=== PATIENT | male | born 1955 | race African-American/Black ===

== ENCOUNTER 2020-05-26 18:29 | Inpatient (IN) ==
[2020-05-26] MEDS ORDERED: LORazepam 2 MG/1 ML VIAL IV STA ×2 (19:04→20:15)
[2020-05-26] MEDS ORDERED: THIAMINE INJ 100 MG, FOLIC ACID INJ 1 MG, MAGNESIUM SULF INJ 2 GM, MULTIVITAMIN INJ 10 ... IV ONE (19:04)
[2020-05-26 19:46] LABS: Basophils % 0.2 % (0.0-0.8); Eosinophils % 0.1 % (0.00-10.9); Hematocrit 41.8 VOL% (42.0-52.0); Hemoglobin 13.5 GM/DL (14.0-18.0); Immature Granulocytes % 1.3 %; Immature Granulocytes Absolute 0.18 #; Lymphocytes # 1.7 10*3/uL (1.4-4.0); Mean Corpuscular HGB Conc 32.3 GM/DL (32-36); Mean Corpuscular Volume 100.2 FL (87-102); Mean Platelet Volume 10.1 FL (9.6-12.0); Monocytes % 12.7 % (1.7-12.7); NRBC # 0.03 10*3/uL; Neutrophils % 73.7 % (38.7-73.9); Platelet Count 382 T/CUMM (130-400); Red Blood Count 4.17 MC/CUMM (3.8-5.5); Red Cell Distribution Width 13.9 % (9.3-17.3)
[2020-05-26 19:58] LABS: INR 1.1; PT Patient Result 11.5 SECS (9.8-11.9)
[2020-05-26 20:20] LABS: Alanine Aminotransferase 11 U/L (16-61); Albumin 2.9 G/DL (3.4-5.0); Alkaline Phosphatase 164 U/L (45-117); Aspartate Amino Transferase 57 U/L (0-37); Bilirubin,Total 0.77 MG/DL (0.2-1.0); Blood Urea Nitrogen 32 MG/DL (7-18); Calcium 8.8 MG/DL (8.5-10.1); Estimated Glom Filtration Rate 44 ML/MIN; Glucose 160 MG/DL (74-106); Total Protein 8.7 G/DL (6.4-8.3)
[2020-05-26 20:21] LABS: CKMB % 0.6 %; Carbon Dioxide 30 MMOL/L (21-32); Osmolality,Calculated 286.5 MOS/KG (273-304); Potassium 2.7 MMOL/L (3.5-5.1); Sodium 139 MMOL/L (136-145)
[2020-05-26 20:22] LABS: Troponin I 0.066 NG/ML (0.00-0.045)
[2020-05-26] MEDS ORDERED: POTASSIUM CHLORIDE RIDER 20 MEQ in PREMIX 1 EACH IV STA (20:47)
[2020-05-26 21:19] LABS: Bacteria,Urine Occasional /HPF (Few); Bilirubin,Urine Small mg/dL (Negative); Blood, Urine Moderate mg/dL (Negative); Glucose,Urine (UA) Negative (Negative); Hyaline Casts,Urine 108 /LPF (0-3); Ketones,Urine Negative (Negative); Mucus,Urine Few /LPF (Occasional); Nitrite,Urine Negative (Negative); Protein,Urine 30 MG/DL; RBC,Urine 4 /HPF (0-4); Squamous Epithelial Cell,Urine Occasional /HPF (0-10); Urine Appearance Slightly Hazy (Clear); Urine Color Amber (Yellow); Urine Specific Gravity 1.023 (1.001-1.035); WBC,Urine 2 /HPF (0-6)
[2020-05-26 21:21] LABS: Barbiturates Screen,Urine Negative (Negative); Benzodiazepines Screen,Urine Negative (Negative); Cannabinoid Screen,Urine Negative (Negative); Opiate Screen,Urine Negative (Negative); Phencyclidine Screen,Urine Negative (Negative)
[2020-05-26] MEDS ORDERED: GLUCAGON 1 MG VIAL IM PRN (21:57)
[2020-05-26] MEDS ORDERED: DEXTROSE 50% 25 GM/50 ML VIAL IV PRN ×2 (21:57→22:05)
[2020-05-26] MEDS ORDERED: METHOCARBAMOL 750 MG TABLET PO PRN (22:05)
[2020-05-26] MEDS ORDERED: THIAMINE INJ 100 MG, FOLIC ACID INJ 1 MG, MULTIVITAMIN INJ 10 ML in SODIUM CHLORIDE 0.9... IV ONE (22:05)
[2020-05-26] MEDS ORDERED: HydrOXYzine PAMOATE 25 MG CAPSULE PO PRN (22:05)
[2020-05-26] MEDS ORDERED: POTASSIUM CHLORIDE 20 MEQ TABLET PO PRN (22:05)
[2020-05-26] MEDS ORDERED: DICYCLOMINE 10 MG CAPSULE PO PRN (22:05)
[2020-05-27] MEDS: SODIUM CHLORIDE 0.9% 1,000 ML IV SCH ×3 (00:16→17:11)
[2020-05-27] MEDS: ENOXAPARIN 40 MG/0.4 ML SYRINGE SUBCUT SCH ×2 (00:20→21:57)
[2020-05-27] MEDS: chlordiazePOXIDE 25 MG CAPSULE PO SCH ×4 (01:57→21:57)
[2020-05-27 07:29] LABS: Basophils % 0.2 % (0.0-0.8); Eosinophils % 0.1 % (0.00-10.9); Hematocrit 32.6 VOL% (42.0-52.0); Immature Granulocytes % 0.7 %; Immature Granulocytes Absolute 0.08 #; Lymphocytes # 1.7 10*3/uL (1.4-4.0); Lymphocytes % 15.3 % (21.2-54.2); Mean Corpuscular HGB Conc 33.7 GM/DL (32-36); Mean Corpuscular Volume 97.6 FL (87-102); Mean Platelet Volume 10.2 FL (9.6-12.0); Monocytes % 13.3 % (1.7-12.7); Neutrophils % 70.4 % (38.7-73.9); Platelet Count 280 T/CUMM (130-400); Red Blood Count 3.34 MC/CUMM (3.8-5.5); White Blood Count 11.2 T/CUMM (4-12)
[2020-05-27 07:52] LABS: Alanine Aminotransferase < 9 U/L (16-61); Albumin 2.3 G/DL (3.4-5.0); Alkaline Phosphatase 123 U/L (45-117); Aspartate Amino Transferase 46 U/L (0-37); Blood Urea Nitrogen 26 MG/DL (7-18); Calcium 7.9 MG/DL (8.5-10.1); Carbon Dioxide 30 MMOL/L (21-32); Estimated Glom Filtration Rate 71 ML/MIN; Glucose 88 MG/DL (74-106); Sodium 143 MMOL/L (136-145); Total Protein 6.7 G/DL (6.4-8.3)
[2020-05-27 07:57] LABS: Potassium 2.2 MMOL/L (3.5-5.1)
[2020-05-27] MEDS: INSULIN REGULAR 100 UNIT/ML SUBCUT SCH ×4 (08:20→21:57)
[2020-05-27] MEDS: FOLIC ACID 1 MG TABLET PO SCH (08:54)
[2020-05-27] MEDS: THIAMINE 100 MG TABLET PO SCH (08:54)
[2020-05-27] MEDS ORDERED: POTASSIUM CHLORIDE 20 MEQ TABLET PO ONE (09:00)
[2020-05-27] MEDS ORDERED: POTASSIUM CHLORIDE INJ 50 MEQ in SODIUM CHLORIDE 0.9% 500 ML IV ONE (10:00)
[2020-05-27] MEDS ORDERED: THIAMINE INJ 100 MG, FOLIC ACID INJ 1 MG, MULTIVITAMIN INJ 10 ML in SODIUM CHLORIDE 0.9... IV ONE (21:00)
[2020-05-28] MEDS: SODIUM CHLORIDE 0.9% 1,000 ML IV SCH ×3 (01:10→19:06)
[2020-05-28] MEDS: chlordiazePOXIDE 25 MG CAPSULE PO SCH ×3 (02:23→17:31)
[2020-05-28 05:54] LABS: Basophils % 0.1 % (0.0-0.8); Eosinophils # 0.1 10*3/uL (0.0-0.87); Eosinophils % 0.7 % (0.00-10.9); Hematocrit 28.9 VOL% (42.0-52.0); Hemoglobin 9.3 GM/DL (14.0-18.0); Immature Granulocytes % 0.7 %; Immature Granulocytes Absolute 0.05 #; Lymphocytes # 1.3 10*3/uL (1.4-4.0); Lymphocytes % 18.2 % (21.2-54.2); Mean Corpuscular HGB Conc 32.2 GM/DL (32-36); Mean Corpuscular Volume 101.4 FL (87-102); Mean Platelet Volume 10.1 FL (9.6-12.0); Neutrophils % 67.3 % (38.7-73.9); Platelet Count 234 T/CUMM (130-400); Red Blood Count 2.85 MC/CUMM (3.8-5.5); Red Cell Distribution Width 13.8 % (9.3-17.3); White Blood Count 7.4 T/CUMM (4-12)
[2020-05-28 06:37] LABS: Alanine Aminotransferase < 9 U/L (16-61); Albumin 1.8 G/DL (3.4-5.0); Alkaline Phosphatase 105 U/L (45-117); Aspartate Amino Transferase 35 U/L (0-37); Blood Urea Nitrogen 17 MG/DL (7-18); Calcium 7.6 MG/DL (8.5-10.1); Carbon Dioxide 26 MMOL/L (21-32); Estimated Glom Filtration Rate 95 ML/MIN; Glucose 78 MG/DL (74-106); Osmolality,Calculated 290.6 MOS/KG (273-304); Potassium 2.8 MMOL/L (3.5-5.1); Sodium 146 MMOL/L (136-145); Total Protein 5.7 G/DL (6.4-8.3)
[2020-05-28 08:02] LABS: Troponin I 0.033 NG/ML (0.00-0.045)
[2020-05-28] MEDS ORDERED: POTASSIUM CHLORIDE 20 MEQ TABLET PO PRN (08:22)
[2020-05-28] MEDS: FOLIC ACID 1 MG TABLET PO SCH (08:59)
[2020-05-28] MEDS: THIAMINE 100 MG TABLET PO SCH (08:59)
[2020-05-28] MEDS: INSULIN REGULAR 100 UNIT/ML SUBCUT SCH ×4 (09:23→22:00)
[2020-05-28] MEDS ORDERED: MAGNESIUM SULF RIDER 4 GM in PREMIX 1 EACH IV ONE (12:00)
[2020-05-28] MEDS ORDERED: POTASSIUM CHLORIDE 20 MEQ TABLET PO ONE (12:00)
[2020-05-28] MEDS: ASPIRIN EC 81 MG TABLET PO SCH (12:58)
[2020-05-28] MEDS: METOPROLOL TARTRATE 25 MG TABLET PO SCH ×2 (12:59→21:59)
[2020-05-28] MEDS: ENOXAPARIN 40 MG/0.4 ML SYRINGE SUBCUT SCH (21:59)
[2020-05-29] MEDS: chlordiazePOXIDE 25 MG CAPSULE PO SCH ×3 (04:14→17:41)
[2020-05-29] MEDS: SODIUM CHLORIDE 0.9% 1,000 ML IV SCH ×3 (07:09→18:22)
[2020-05-29] MEDS: INSULIN REGULAR 100 UNIT/ML SUBCUT SCH ×4 (07:56→21:25)
[2020-05-29 08:51] LABS: Basophils % 0.2 % (0.0-0.8); Eosinophils # 0.1 10*3/uL (0.0-0.87); Eosinophils % 0.9 % (0.00-10.9); Hematocrit 31.9 VOL% (42.0-52.0); Hemoglobin 10.1 GM/DL (14.0-18.0); Immature Granulocytes % 0.6 %; Immature Granulocytes Absolute 0.04 #; Lymphocytes # 1.6 10*3/uL (1.4-4.0); Lymphocytes % 24.3 % (21.2-54.2); Mean Corpuscular HGB Conc 31.7 GM/DL (32-36); Mean Corpuscular Volume 101.9 FL (87-102); Mean Platelet Volume 11.1 FL (9.6-12.0); Monocytes % 11.8 % (1.7-12.7); Neutrophils % 62.2 % (38.7-73.9); Platelet Count 205 T/CUMM (130-400); Red Blood Count 3.13 MC/CUMM (3.8-5.5); White Blood Count 6.5 T/CUMM (4-12)
[2020-05-29] MEDS: FOLIC ACID 1 MG TABLET PO SCH (09:05)
[2020-05-29] MEDS: ASPIRIN EC 81 MG TABLET PO SCH (09:05)
[2020-05-29] MEDS: METOPROLOL TARTRATE 25 MG TABLET PO SCH ×2 (09:05→21:25)
[2020-05-29] MEDS: THIAMINE 100 MG TABLET PO SCH (09:05)
[2020-05-29 09:24] LABS: Calcium 7.7 MG/DL (8.5-10.1); Osmolality,Calculated 275.5 MOS/KG (273-304); Potassium 3.7 MMOL/L (3.5-5.1)
[2020-05-29 09:29] LABS: Alanine Aminotransferase < 9 U/L (16-61); Albumin 1.8 G/DL (3.4-5.0); Alkaline Phosphatase 108 U/L (45-117); Aspartate Amino Transferase 32 U/L (0-37); Blood Urea Nitrogen 12 MG/DL (7-18); Calcium 7.7 MG/DL (8.5-10.1); Carbon Dioxide 26 MMOL/L (21-32); Estimated Glom Filtration Rate 95 ML/MIN; Glucose 77 MG/DL (74-106); Osmolality,Calculated 284.8 MOS/KG (273-304); Potassium 3.6 MMOL/L (3.5-5.1); Sodium 144 MMOL/L (136-145); Total Protein 5.7 G/DL (6.4-8.3)
[2020-05-29] MEDS: ENOXAPARIN 40 MG/0.4 ML SYRINGE SUBCUT SCH (21:28)
[2020-05-30 06:39] LABS: Calcium 7.8 MG/DL (8.5-10.1); Osmolality,Calculated 282.8 MOS/KG (273-304); Potassium 3.4 MMOL/L (3.5-5.1)
[2020-05-30] MEDS: INSULIN REGULAR 100 UNIT/ML SUBCUT SCH ×4 (07:23→20:15)
[2020-05-30] MEDS ORDERED: TUBERCULIN SKIN TEST 0.1 ML SYRINGE INTRADERM ONE (08:30)
[2020-05-30] MEDS: METOPROLOL TARTRATE 25 MG TABLET PO SCH ×2 (08:37→20:14)
[2020-05-30] MEDS: ASPIRIN EC 81 MG TABLET PO SCH (08:37)
[2020-05-30] MEDS: FOLIC ACID 1 MG TABLET PO SCH (08:37)
[2020-05-30] MEDS: THIAMINE 100 MG TABLET PO SCH (08:38)
[2020-05-30] MEDS: SODIUM CHLORIDE 0.9% 1,000 ML IV SCH ×3 (11:32→18:35)
[2020-05-30] MEDS: ENOXAPARIN 40 MG/0.4 ML SYRINGE SUBCUT SCH (20:14)
[2020-05-31] MEDS: SODIUM CHLORIDE 0.9% 1,000 ML IV SCH ×3 (02:57→18:57)
[2020-05-31] MEDS: INSULIN REGULAR 100 UNIT/ML SUBCUT SCH ×4 (07:42→21:13)
[2020-05-31] MEDS: ASPIRIN EC 81 MG TABLET PO SCH (08:11)
[2020-05-31] MEDS: THIAMINE 100 MG TABLET PO SCH (08:11)
[2020-05-31] MEDS: METOPROLOL TARTRATE 25 MG TABLET PO SCH ×2 (08:12→20:11)
[2020-05-31] MEDS: FOLIC ACID 1 MG TABLET PO SCH (08:12)
[2020-05-31] MEDS: ENOXAPARIN 40 MG/0.4 ML SYRINGE SUBCUT SCH (20:11)
[2020-06-01] MEDS: SODIUM CHLORIDE 0.9% 1,000 ML IV SCH ×3 (03:00→19:31)
[2020-06-01] MEDS: INSULIN REGULAR 100 UNIT/ML SUBCUT SCH ×4 (07:50→22:55)
[2020-06-01] MEDS: ASPIRIN EC 81 MG TABLET PO SCH (08:54)
[2020-06-01] MEDS: THIAMINE 100 MG TABLET PO SCH (08:54)
[2020-06-01] MEDS: FOLIC ACID 1 MG TABLET PO SCH (08:54)
[2020-06-01] MEDS: METOPROLOL TARTRATE 25 MG TABLET PO SCH ×2 (08:54→20:40)
[2020-06-01] MEDS: amLODIPine 5 MG TABLET PO SCH (13:42)
[2020-06-01] MEDS: ENOXAPARIN 40 MG/0.4 ML SYRINGE SUBCUT SCH (20:40)
[2020-06-02] MEDS: SODIUM CHLORIDE 0.9% 1,000 ML IV SCH ×3 (03:05→22:00)
[2020-06-02 05:42] LABS: Basophils % 0.4 % (0.0-0.8); Eosinophils # 0.1 10*3/uL (0.0-0.87); Eosinophils % 1.1 % (0.00-10.9); Hematocrit 28.6 VOL% (42.0-52.0); Hemoglobin 9.2 GM/DL (14.0-18.0); Immature Granulocytes % 0.2 %; Immature Granulocytes Absolute 0.01 #; Lymphocytes # 1.6 10*3/uL (1.4-4.0); Lymphocytes % 34.3 % (21.2-54.2); Mean Corpuscular HGB Conc 32.2 GM/DL (32-36); Mean Corpuscular Volume 97.3 FL (87-102); Mean Platelet Volume 10.5 FL (9.6-12.0); Monocytes % 11.3 % (1.7-12.7); Neutrophils % 52.7 % (38.7-73.9); Platelet Count 244 T/CUMM (130-400); Red Blood Count 2.94 MC/CUMM (3.8-5.5); Red Cell Distribution Width 13.2 % (9.3-17.3); White Blood Count 4.7 T/CUMM (4-12)
[2020-06-02 05:53] LABS: Calcium 7.2 MG/DL (8.5-10.1); Osmolality,Calculated 272.5 MOS/KG (273-304)
[2020-06-02 06:15] LABS: Anisocytosis 1+; Eosinophils 1 % (0-10); Lymphocytes 26 % (20-55); Macrocytosis 1+; Platelet Estimate Normal; Segmented Neutrophils 66 % (50-85); Total Cells Counted 100
[2020-06-02 06:16] LABS: Atypical Lymphocytes Few
[2020-06-02] MEDS ORDERED: MAGNESIUM SULF RIDER 4 GM in PREMIX 1 EACH IV ONE (08:59)
[2020-06-02] MEDS ORDERED: POTASSIUM CHLORIDE 20 MEQ TABLET PO ONE (09:00)
[2020-06-02] MEDS ORDERED: amLODIPine 10 MG TABLET PO SCH (09:01)
[2020-06-02] MEDS: INSULIN REGULAR 100 UNIT/ML SUBCUT SCH ×4 (09:57→23:16)
[2020-06-02] MEDS: FOLIC ACID 1 MG TABLET PO SCH (09:59)
[2020-06-02] MEDS: MAGNESIUM OXIDE 400 MG TABLET PO SCH ×2 (09:59→23:01)
[2020-06-02] MEDS: amLODIPine 10 MG TABLET PO SCH (09:59)
[2020-06-02] MEDS: ASPIRIN EC 81 MG TABLET PO SCH (09:59)
[2020-06-02] MEDS: METOPROLOL TARTRATE 25 MG TABLET PO SCH ×2 (09:59→23:01)
[2020-06-02] MEDS: POLYETHYLENE GLYCOL POWDER 17 GM PACK PO SCH (10:00)
[2020-06-02] MEDS: THIAMINE 100 MG TABLET PO SCH (10:00)
[2020-06-02] MEDS: POTASSIUM CHLORIDE RIDER 10 MEQ in PREMIX 1 EACH IV SCH ×4 (11:37→15:07)
[2020-06-02] MEDS: amLODIPine 5 MG TABLET PO SCH (16:50)
[2020-06-02] MEDS: ENOXAPARIN 40 MG/0.4 ML SYRINGE SUBCUT SCH (23:01)
[2020-06-03 05:33] LABS: Basophils % 0.5 % (0.0-0.8); Eosinophils # 0.1 10*3/uL (0.0-0.87); Eosinophils % 0.9 % (0.00-10.9); Hematocrit 30.9 VOL% (42.0-52.0); Hemoglobin 10.1 GM/DL (14.0-18.0); Immature Granulocytes % 0.4 %; Immature Granulocytes Absolute 0.03 #; Lymphocytes # 1.9 10*3/uL (1.4-4.0); Lymphocytes % 25.2 % (21.2-54.2); Mean Corpuscular HGB Conc 32.7 GM/DL (32-36); Mean Corpuscular Volume 96.9 FL (87-102); Monocytes % 12.3 % (1.7-12.7); Neutrophils % 60.7 % (38.7-73.9); Platelet Count 232 T/CUMM (130-400); Red Blood Count 3.19 MC/CUMM (3.8-5.5); Red Cell Distribution Width 13.5 % (9.3-17.3); White Blood Count 7.5 T/CUMM (4-12)
[2020-06-03 05:51] LABS: Calcium 7.7 MG/DL (8.5-10.1); Osmolality,Calculated 275.3 MOS/KG (273-304); Potassium 4.4 MMOL/L (3.5-5.1)
[2020-06-03] MEDS: THIAMINE 100 MG TABLET PO SCH (08:40)
[2020-06-03] MEDS: FOLIC ACID 1 MG TABLET PO SCH (08:40)
[2020-06-03] MEDS: amLODIPine 10 MG TABLET PO SCH (08:40)
[2020-06-03] MEDS: ASPIRIN EC 81 MG TABLET PO SCH (08:40)
[2020-06-03] MEDS: MAGNESIUM OXIDE 400 MG TABLET PO SCH ×2 (08:40→23:41)
[2020-06-03] MEDS: METOPROLOL TARTRATE 25 MG TABLET PO SCH ×2 (08:40→23:42)
[2020-06-03] MEDS: POLYETHYLENE GLYCOL POWDER 17 GM PACK PO SCH (08:40)
[2020-06-03] MEDS: SODIUM CHLORIDE 0.9% 1,000 ML IV SCH ×3 (08:41→18:10)
[2020-06-03] MEDS: INSULIN REGULAR 100 UNIT/ML SUBCUT SCH ×4 (08:41→23:42)
[2020-06-03] MEDS: ENOXAPARIN 40 MG/0.4 ML SYRINGE SUBCUT SCH (23:41)
[2020-06-04] MEDS: SODIUM CHLORIDE 0.9% 1,000 ML IV SCH ×4 (01:30→18:52)
[2020-06-04] MEDS: THIAMINE 100 MG TABLET PO SCH (09:37)
[2020-06-04] MEDS: METOPROLOL TARTRATE 25 MG TABLET PO SCH ×2 (09:37→20:34)
[2020-06-04] MEDS: amLODIPine 10 MG TABLET PO SCH (09:37)
[2020-06-04] MEDS: POLYETHYLENE GLYCOL POWDER 17 GM PACK PO SCH (09:37)
[2020-06-04] MEDS: MAGNESIUM OXIDE 400 MG TABLET PO SCH ×2 (09:37→20:34)
[2020-06-04] MEDS: FOLIC ACID 1 MG TABLET PO SCH (09:37)
[2020-06-04] MEDS: ASPIRIN EC 81 MG TABLET PO SCH (09:37)
[2020-06-04] MEDS: INSULIN REGULAR 100 UNIT/ML SUBCUT SCH ×4 (10:25→20:37)
[2020-06-04] MEDS: ENOXAPARIN 40 MG/0.4 ML SYRINGE SUBCUT SCH (20:34)
[2020-06-05] MEDS: SODIUM CHLORIDE 0.9% 1,000 ML IV SCH (03:10)
[2020-06-05 06:27] LABS: Basophils % 0.6 % (0.0-0.8); Eosinophils # 0.1 10*3/uL (0.0-0.87); Eosinophils % 1.7 % (0.00-10.9); Hematocrit 26.2 VOL% (42.0-52.0); Hemoglobin 8.7 GM/DL (14.0-18.0); Immature Granulocytes % 0.4 %; Immature Granulocytes Absolute 0.02 #; Lymphocytes # 1.8 10*3/uL (1.4-4.0); Lymphocytes % 34.6 % (21.2-54.2); Mean Corpuscular HGB Conc 33.2 GM/DL (32-36); Mean Corpuscular Volume 95.3 FL (87-102); Mean Platelet Volume 10.4 FL (9.6-12.0); Monocytes % 12.5 % (1.7-12.7); Neutrophils % 50.2 % (38.7-73.9); Platelet Count 216 T/CUMM (130-400); Red Blood Count 2.75 MC/CUMM (3.8-5.5); Red Cell Distribution Width 13.9 % (9.3-17.3); White Blood Count 5.2 T/CUMM (4-12)
[2020-06-05 07:07] LABS: Calcium 8.2 MG/DL (8.5-10.1); Osmolality,Calculated 272.5 MOS/KG (273-304); Potassium 3.7 MMOL/L (3.5-5.1)
[2020-06-05] MEDS: INSULIN REGULAR 100 UNIT/ML SUBCUT SCH ×4 (07:33→20:28)
[2020-06-05] MEDS: ASPIRIN EC 81 MG TABLET PO SCH (09:42)
[2020-06-05] MEDS: THIAMINE 100 MG TABLET PO SCH (09:42)
[2020-06-05] MEDS: amLODIPine 10 MG TABLET PO SCH (09:42)
[2020-06-05] MEDS: MAGNESIUM OXIDE 400 MG TABLET PO SCH ×2 (09:42→20:12)
[2020-06-05] MEDS: FOLIC ACID 1 MG TABLET PO SCH (09:42)
[2020-06-05] MEDS: METOPROLOL TARTRATE 25 MG TABLET PO SCH ×2 (09:43→20:13)
[2020-06-05] MEDS: POLYETHYLENE GLYCOL POWDER 17 GM PACK PO SCH (10:37)
[2020-06-05] MEDS: ENOXAPARIN 40 MG/0.4 ML SYRINGE SUBCUT SCH (20:12)
[2020-06-06] MEDS: MAGNESIUM OXIDE 400 MG TABLET PO SCH ×2 (09:01→20:59)
[2020-06-06] MEDS: amLODIPine 10 MG TABLET PO SCH (09:02)
[2020-06-06] MEDS: FOLIC ACID 1 MG TABLET PO SCH (09:02)
[2020-06-06] MEDS: THIAMINE 100 MG TABLET PO SCH (09:02)
[2020-06-06] MEDS: ASPIRIN EC 81 MG TABLET PO SCH (09:02)
[2020-06-06] MEDS: METOPROLOL TARTRATE 25 MG TABLET PO SCH ×2 (09:30→20:59)
[2020-06-06] MEDS: POLYETHYLENE GLYCOL POWDER 17 GM PACK PO SCH (09:30)
[2020-06-06] MEDS: INSULIN REGULAR 100 UNIT/ML SUBCUT SCH ×4 (10:21→20:58)
[2020-06-06] MEDS: ENOXAPARIN 40 MG/0.4 ML SYRINGE SUBCUT SCH (20:59)
[2020-06-07] MEDS: POLYETHYLENE GLYCOL POWDER 17 GM PACK PO SCH (10:50)
[2020-06-07] MEDS: FOLIC ACID 1 MG TABLET PO SCH (10:51)
[2020-06-07] MEDS: ASPIRIN EC 81 MG TABLET PO SCH (10:51)
[2020-06-07] MEDS: THIAMINE 100 MG TABLET PO SCH (10:51)
[2020-06-07] MEDS: MAGNESIUM OXIDE 400 MG TABLET PO SCH ×2 (10:52→21:23)
[2020-06-07] MEDS: INSULIN REGULAR 100 UNIT/ML SUBCUT SCH ×4 (10:52→21:55)
[2020-06-07] MEDS: METOPROLOL TARTRATE 25 MG TABLET PO SCH ×2 (10:53→21:23)
[2020-06-07] MEDS: amLODIPine 10 MG TABLET PO SCH (10:53)
[2020-06-07] MEDS: ENOXAPARIN 40 MG/0.4 ML SYRINGE SUBCUT SCH (21:56)
[2020-06-08] MEDS: ASPIRIN EC 81 MG TABLET PO SCH (09:14)
[2020-06-08] MEDS: MAGNESIUM OXIDE 400 MG TABLET PO SCH ×2 (09:14→21:25)
[2020-06-08] MEDS: METOPROLOL TARTRATE 25 MG TABLET PO SCH ×2 (09:14→21:26)
[2020-06-08] MEDS: THIAMINE 100 MG TABLET PO SCH (09:14)
[2020-06-08] MEDS: amLODIPine 10 MG TABLET PO SCH (09:14)
[2020-06-08] MEDS: FOLIC ACID 1 MG TABLET PO SCH (09:14)
[2020-06-08] MEDS: INSULIN REGULAR 100 UNIT/ML SUBCUT SCH ×4 (09:14→21:25)
[2020-06-08] MEDS: POLYETHYLENE GLYCOL POWDER 17 GM PACK PO SCH (09:14)
[2020-06-08] MEDS: ENOXAPARIN 40 MG/0.4 ML SYRINGE SUBCUT SCH (21:25)
[2020-06-09 06:07] LABS: Basophils % 0.6 % (0.0-0.8); Eosinophils # 0.1 10*3/uL (0.0-0.87); Eosinophils % 1.9 % (0.00-10.9); Hematocrit 31.5 VOL% (42.0-52.0); Hemoglobin 9.9 GM/DL (14.0-18.0); Immature Granulocytes % 0.3 %; Immature Granulocytes Absolute 0.02 #; Lymphocytes # 2.4 10*3/uL (1.4-4.0); Lymphocytes % 37.9 % (21.2-54.2); Mean Corpuscular HGB Conc 31.4 GM/DL (32-36); Mean Corpuscular Volume 100.3 FL (87-102); Mean Platelet Volume 10.2 FL (9.6-12.0); Monocytes % 10.8 % (1.7-12.7); Neutrophils % 48.5 % (38.7-73.9); Platelet Count 239 T/CUMM (130-400); Red Blood Count 3.14 MC/CUMM (3.8-5.5); Red Cell Distribution Width 14.2 % (9.3-17.3); White Blood Count 6.2 T/CUMM (4-12)
[2020-06-09 06:36] LABS: Calcium 9.2 MG/DL (8.5-10.1); Osmolality,Calculated 270.8 MOS/KG (273-304); Potassium 4.1 MMOL/L (3.5-5.1)
[2020-06-09] MEDS: INSULIN REGULAR 100 UNIT/ML SUBCUT SCH ×3 (08:17→17:12)
[2020-06-09] MEDS: MAGNESIUM OXIDE 400 MG TABLET PO SCH (09:45)
[2020-06-09] MEDS: ASPIRIN EC 81 MG TABLET PO SCH (09:45)
[2020-06-09] MEDS: METOPROLOL TARTRATE 25 MG TABLET PO SCH (09:45)
[2020-06-09] MEDS: POLYETHYLENE GLYCOL POWDER 17 GM PACK PO SCH (09:45)
[2020-06-09] MEDS: amLODIPine 10 MG TABLET PO SCH (09:45)
[2020-06-09] MEDS: THIAMINE 100 MG TABLET PO SCH (09:45)
[2020-06-09] MEDS: FOLIC ACID 1 MG TABLET PO SCH (09:45)
[2020-06-09 16:14] VITALS: BP 113/71
== END 2020-06-09 16:37 | DRG 896 ==
LOC: N.ED 18:29 → SUATTDRO 21:57 → N.EDINP 21:57 → N.5E 05-27 01:35
PROVIDERS: ADMIT Family Medicine; ATTEND Internal Medicine